=== PATIENT | male | born 2000 | race Caucasian/White ===

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

== ENCOUNTER 2024-06-03 22:37 | Emergency (ER) | payer SELFPAY ==
[~2024-06-03] VITALS: Ht 177.8 cm; Wt 99.8 kg
[~2024-06-03 22:37] MED LIST: HYDR1TAB94 PO
[2024-06-03 22:52] VITALS: BP 138/92
== END 2024-06-03 23:56 | disposition home or self-care (01) ==
LOC: ER 22:37
DX: L98.9 Disorder of the skin and subcutaneous tissue, unspecified (principal); Z79.899 Other long term (current) drug therapy
CPT/HCPCS: 76857; 99283-25